=== PATIENT | male | born 1945 | race Caucasian/White ===

== ENCOUNTER 2022-11-02 09:38 | Outpatient (CLI) | payer MEDICARE | END 2022-11-02 09:39 | disposition home or self-care (01) | LOC: RAD-FRANK 09:38 | PROVIDERS: ATTEND Nurse Practitioner Family | DX: M79.671 Pain in right foot (principal) ==

== ENCOUNTER 2024-04-12 07:56 | Outpatient (CLI) | payer MEDICARE, BC ==
[2024-04-12] MEDS ORDERED: Iopamidol 370 76% 100 ML VIAL ONE (14:52)
== END 2024-04-12 07:57 | disposition home or self-care (01) ==
LOC: CT 07:56
PROVIDERS: ATTEND Nurse Practitioner Family
DX: R10.12 Left upper quadrant pain (principal); R18.8 Other ascites; N32.89 Other specified disorders of bladder
CPT/HCPCS: 36415; 74177; 82565; Q9967

== ENCOUNTER 2025-02-14 10:26 | Outpatient (CLI) | payer MEDICARE, BC | END 2025-02-14 10:27 | disposition home or self-care (01) | LOC: ULT 10:26 | PROVIDERS: ATTEND Internal Medicine Nephrology | DX: R80.9 Proteinuria, unspecified (principal); R93.41 Abnormal radiologic findings on diagnostic imaging of renal pelvis, ureter, or bladder | CPT/HCPCS: 76770 ==